=== PATIENT | male | born 1955 | race Caucasian/White ===

== ENCOUNTER 2021-10-18 10:55 | Inpatient (IN) | payer BC ==
[2021-10-18 11:05] VITALS: BMI 31.6
[2021-10-18] MEDS ORDERED: DEXAMETHASONE SOD PHOSPHATE 10 MG/1 ML VIAL IVPUSH ONE (13:32)
[2021-10-18] MEDS ORDERED: ONDANSETRON 4 MG/2 ML VIAL IVPUSH ONE (13:40)
[2021-10-18] MEDS ORDERED: ONDANSETRON 4 MG/2 ML VIAL ONE (13:45)
[2021-10-18] MEDS ORDERED: DEXAMETHASONE SOD PHOSPHATE 10 MG/1 ML VIAL ONE (13:45)
[2021-10-18 14:01] LABS: BASO % 0.5 % (0-2.0); EOS % 0.2 % (0-4.5); HEMATOCRIT 46.9 % (35.4-49); LYMPH % 12.7 % (8-40); MCH 32.4 pg (25.7-33.7); MCHC 34.2 g/dl (32.0-35.9); MEAN CELL VOLUME 94.8 fl (80-96); MEAN PLT VOLUME 9.3 fl (7.5-11.1); MONO % 10.6 % (3.8-10.2); PLATELET COUNT 212 10^3/uL (134-434); RBC 4.94 M/mm3 (4.00-5.60); RDW 13.4 % (11.9-15.9); WHITE BLOOD COUNT 7.8 K/mm3 (4.0-10.0)
[2021-10-18 14:09] LABS: INR 1.68 (0.83-1.09); PROTHROMBIN TIME (PATIENT) 19.7 SEC (9.7-13.0)
[2021-10-18 14:11] LABS: ACTIVATED PTT 34.4 SECONDS (25.2-36.5)
[2021-10-18 14:21] LABS: ALBUMIN 3.1 g/dl (3.4-5.0); BLOOD UREA NITROGEN 18.1 mg/dL (7-18); CALCIUM 8.6 mg/dL (8.5-10.1)
[2021-10-18 14:26] LABS: BILIRUBIN,TOTAL 0.5 mg/dL (0.2-1); TOT PROT 6.9 g/dl (6.4-8.2)
[2021-10-18 14:28] LABS: LACTIC ACID 2.1 mmol/L (0.4-2.0)
[2021-10-18] MEDS ORDERED: LACTATED RINGERS SOLUTION 1000 ML INFUS.BAG IV ONE (15:36)
[2021-10-18] MEDS ORDERED: POTASSIUM CHLORIDE TABS 20 MEQ TABLET.ER (FP) PO ONE ×2 (15:36→17:30)
[2021-10-18 16:04] LABS: PH,URINE 6.5 (5.0-8.0); URINE APPEARANCE CLEAR; URINE BILIRUBIN NEGATIVE (NEGATIVE); URINE COLOR DK YELLOW; URINE GLUCOSE (UA) NEGATIVE (NEGATIVE); URINE KETONE NEGATIVE (NEGATIVE); URINE LEUK ESTERASE NEGATIVE (NEGATIVE); URINE NITRITE NEGATIVE (NEGATIVE); URINE PROTEIN NEGATIVE (NEGATIVE)
[2021-10-18] MEDS ORDERED: ALBUTEROL SO4 HFA INHALER IH PRN (16:13)
[2021-10-18 16:18] LABS: MAGNESIUM 2.1 mg/dL (1.8-2.4)
[2021-10-18] MEDS ORDERED: REMDESIVIR 200 MG in SODIUM CHLORIDE 250 ML IVPB ONE (17:00)
[2021-10-18 21:29] LABS: LACTIC ACID 3.5 mmol/L (0.4-2.0)
[2021-10-18] MEDS ORDERED: ATORVASTATIN CA 80 MG TABLET (FP) ONE (22:24)
[2021-10-18] MEDS ORDERED: APIXABAN 5 MG TABLET ONE (22:24)
[2021-10-18] MEDS ORDERED: ASCORBIC ACID 500 MG TABLET (FP) ONE (22:24)
[2021-10-18] MEDS: APIXABAN 5 MG TABLET PO SCH (22:33)
[2021-10-18] MEDS: ATORVASTATIN CA 80 MG TABLET (FP) PO SCH (22:33)
[2021-10-18] MEDS: ASCORBIC ACID 500 MG TABLET (FP) PO SCH (22:33)
[2021-10-18] MEDS ORDERED: LACTATED RINGERS SOLUTION 1,000 ML IV SCH (23:59)
[2021-10-19] MEDS ORDERED: LACTATED RINGERS SOLUTION 1000 ML INFUS.BAG IV ONE (02:05)
[2021-10-19 07:31] LABS: HEMATOCRIT 42.5 % (35.4-49); HEMOGLOBIN 14.6 GM/dL (11.7-16.9); MCH 32.4 pg (25.7-33.7); MCHC 34.3 g/dl (32.0-35.9); MEAN CELL VOLUME 94.3 fl (80-96); MEAN PLT VOLUME 9.9 fl (7.5-11.1); PLATELET COUNT 208 10^3/uL (134-434); RDW 13.4 % (11.9-15.9); WHITE BLOOD COUNT 9.8 K/mm3 (4.0-10.0)
[2021-10-19] MEDS ORDERED: DEXAMETHASONE SOD PHOSPHATE 10 MG/1 ML VIAL ONE (07:56)
[2021-10-19] MEDS ORDERED: ASCORBIC ACID 500 MG TABLET (FP) ONE (07:56)
[2021-10-19] MEDS ORDERED: APIXABAN 5 MG TABLET ONE (07:56)
[2021-10-19] MEDS ORDERED: ASPIRIN COATED 81 MG TABLET.EC ONE (07:56)
[2021-10-19] MEDS ORDERED: HYDROCHLOROTHIAZIDE 25 MG TABLET (FP) ONE (07:57)
[2021-10-19] MEDS ORDERED: CHOLECALCIFEROL (VIT D3) 1,000 UNIT (25 MCG) TABLET ONE (07:57)
[2021-10-19] MEDS ORDERED: VALSARTAN 80 MG TABLET ONE (07:57)
[2021-10-19 07:59] LABS: CALCIUM 8.6 mg/dL (8.5-10.1); MAGNESIUM 1.9 mg/dL (1.8-2.4)
[2021-10-19 08:00] LABS: ALBUMIN 2.6 g/dl (3.4-5.0)
[2021-10-19 08:03] LABS: PHOSPHOROUS 2.4 mg/dL (2.5-4.9)
[2021-10-19 08:04] LABS: BILIRUBIN,TOTAL 0.3 mg/dL (0.2-1); TOT PROT 5.9 g/dl (6.4-8.2)
[2021-10-19] MEDS: CHOLECALCIFEROL (VIT D3) 1,000 UNIT (25 MCG) TABLET PO SCH (09:17)
[2021-10-19] MEDS: ASPIRIN COATED 81 MG TABLET.EC PO SCH (09:17)
[2021-10-19] MEDS: VALSARTAN 160 MG TABLET PO SCH (09:17)
[2021-10-19] MEDS: ASCORBIC ACID 500 MG TABLET (FP) PO SCH ×2 (09:17→21:25)
[2021-10-19] MEDS: HYDROCHLOROTHIAZIDE 25 MG TABLET (FP) PO SCH (09:17)
[2021-10-19] MEDS: APIXABAN 5 MG TABLET PO SCH ×2 (09:17→21:25)
[2021-10-19] MEDS: DEXAMETHASONE SOD PHOSPHATE 10 MG/1 ML VIAL IVPUSH SCH (09:17)
[2021-10-19] MEDS: REMDESIVIR 100 MG in SODIUM CHLORIDE 250 ML IVPB SCH (17:18)
[2021-10-19] MEDS: ATORVASTATIN CA 80 MG TABLET (FP) PO SCH (21:25)
[2021-10-20] MEDS: APIXABAN 5 MG TABLET PO SCH ×2 (10:40→21:29)
[2021-10-20] MEDS: VALSARTAN 160 MG TABLET PO SCH (10:40)
[2021-10-20] MEDS: CHOLECALCIFEROL (VIT D3) 1,000 UNIT (25 MCG) TABLET PO SCH (10:41)
[2021-10-20] MEDS: ASPIRIN COATED 81 MG TABLET.EC PO SCH (10:41)
[2021-10-20] MEDS: HYDROCHLOROTHIAZIDE 25 MG TABLET (FP) PO SCH (10:41)
[2021-10-20] MEDS: ASCORBIC ACID 500 MG TABLET (FP) PO SCH ×2 (10:41→21:29)
[2021-10-20 11:02] LABS: BASO % 0.1 % (0-2.0); HEMATOCRIT 40.8 % (35.4-49); HEMOGLOBIN 13.9 GM/dL (11.7-16.9); LYMPH % 10.4 % (8-40); MCH 32.1 pg (25.7-33.7); MEAN CELL VOLUME 94.3 fl (80-96); MEAN PLT VOLUME 10.1 fl (7.5-11.1); MONO % 4.3 % (3.8-10.2); NEUT % 85.2 % (42.8-82.8); PLATELET COUNT 248 10^3/uL (134-434); RBC 4.33 M/mm3 (4.00-5.60); RDW 13.4 % (11.9-15.9)
[2021-10-20] MEDS ORDERED: DEXAMETHASONE SOD PHOSPHATE 4 MG/1 ML VIAL IVPUSH SCH (11:02)
[2021-10-20 11:15] LABS: CALCIUM 8.5 mg/dL (8.5-10.1)
[2021-10-20 11:16] LABS: ALBUMIN 2.7 g/dl (3.4-5.0); BLOOD UREA NITROGEN 19.8 mg/dL (7-18); MAGNESIUM 1.9 mg/dL (1.8-2.4)
[2021-10-20 11:19] LABS: CREATININE 0.9 mg/dL (0.55-1.3)
[2021-10-20 11:21] LABS: BILIRUBIN,TOTAL 0.4 mg/dL (0.2-1)
[2021-10-20 11:38] LABS: ERYTHROCYTE SEDIMENTATION RATE 29 mm/hr (0-20)
[2021-10-20] MEDS: DEXAMETHASONE SOD PHOSPHATE 10 MG/1 ML VIAL IVPUSH SCH (11:38)
[2021-10-20] MEDS: DEXAMETHASONE SOD PHOSPHATE 4 MG/1 ML VIAL IVPUSH SCH (11:38)
[2021-10-20] MEDS: guaiFENesin/CODEINE 10 ML UNIT-DOSE CUPS PO SCH ×2 (12:24→18:48)
[2021-10-20] MEDS: REMDESIVIR 100 MG in SODIUM CHLORIDE 250 ML IVPB SCH (17:30)
[2021-10-20] MEDS: ATORVASTATIN CA 80 MG TABLET (FP) PO SCH (21:29)
[2021-10-21] MEDS: guaiFENesin/CODEINE 10 ML UNIT-DOSE CUPS PO SCH ×3 (03:01→22:41)
[2021-10-21] MEDS: DEXAMETHASONE SOD PHOSPHATE 4 MG/1 ML VIAL IVPUSH SCH (11:10)
[2021-10-21] MEDS: ASPIRIN COATED 81 MG TABLET.EC PO SCH (11:11)
[2021-10-21] MEDS: VALSARTAN 160 MG TABLET PO SCH (11:11)
[2021-10-21] MEDS: ASCORBIC ACID 500 MG TABLET (FP) PO SCH ×2 (11:11→22:41)
[2021-10-21] MEDS: APIXABAN 5 MG TABLET PO SCH ×2 (11:11→22:41)
[2021-10-21] MEDS: CHOLECALCIFEROL (VIT D3) 1,000 UNIT (25 MCG) TABLET PO SCH (11:11)
[2021-10-21] MEDS: HYDROCHLOROTHIAZIDE 25 MG TABLET (FP) PO SCH (11:11)
[2021-10-21] MEDS: ACETAMINOPHEN 325 MG TABLET (FP) PO PRN (11:26)
[2021-10-21 11:41] LABS: HEMATOCRIT 41.7 % (35.4-49); HEMOGLOBIN 14.1 GM/dL (11.7-16.9); LYMPH % 10.5 % (8-40); MCHC 33.8 g/dl (32.0-35.9); MEAN CELL VOLUME 94.7 fl (80-96); MONO % 7.2 % (3.8-10.2); NEUT % 82.3 % (42.8-82.8); PLATELET COUNT 256 10^3/uL (134-434); RDW 13.5 % (11.9-15.9); WHITE BLOOD COUNT 16.1 K/mm3 (4.0-10.0)
[2021-10-21 11:49] LABS: CALCIUM 8.7 mg/dL (8.5-10.1)
[2021-10-21 11:50] LABS: ALBUMIN 2.8 g/dl (3.4-5.0); BLOOD UREA NITROGEN 20.2 mg/dL (7-18); MAGNESIUM 2.1 mg/dL (1.8-2.4)
[2021-10-21 11:53] LABS: CREATININE 0.9 mg/dL (0.55-1.3)
[2021-10-21 11:55] LABS: BILIRUBIN,TOTAL 0.5 mg/dL (0.2-1)
[2021-10-21] MEDS: REMDESIVIR 100 MG in SODIUM CHLORIDE 250 ML IVPB SCH (17:05)
[2021-10-21] MEDS: BUDESONIDE/FORMETEROL FUMARATE 160/4.5 mcg INHALER IH SCH (22:41)
[2021-10-21] MEDS: ATORVASTATIN CA 80 MG TABLET (FP) PO SCH (22:41)
[2021-10-22] MEDS: guaiFENesin/CODEINE 10 ML UNIT-DOSE CUPS PO SCH (04:25)
[2021-10-22] MEDS: ACETAMINOPHEN 325 MG TABLET (FP) PO PRN (09:02)
[2021-10-22] MEDS: ASCORBIC ACID 500 MG TABLET (FP) PO SCH ×2 (09:02→21:26)
[2021-10-22] MEDS: HYDROCHLOROTHIAZIDE 25 MG TABLET (FP) PO SCH (09:02)
[2021-10-22] MEDS: ASPIRIN COATED 81 MG TABLET.EC PO SCH (09:02)
[2021-10-22] MEDS: DEXAMETHASONE SOD PHOSPHATE 4 MG/1 ML VIAL IVPUSH SCH (09:02)
[2021-10-22] MEDS: CHOLECALCIFEROL (VIT D3) 1,000 UNIT (25 MCG) TABLET PO SCH (09:02)
[2021-10-22] MEDS: APIXABAN 5 MG TABLET PO SCH ×2 (09:02→21:26)
[2021-10-22] MEDS: VALSARTAN 160 MG TABLET PO SCH (09:02)
[2021-10-22] MEDS: BUDESONIDE/FORMETEROL FUMARATE 160/4.5 mcg INHALER IH SCH ×2 (09:03→21:26)
[2021-10-22 11:28] LABS: HEMATOCRIT 40.9 % (35.4-49); MCH 32.3 pg (25.7-33.7); MCHC 34.1 g/dl (32.0-35.9); MEAN CELL VOLUME 94.6 fl (80-96); MEAN PLT VOLUME 9.7 fl (7.5-11.1); MONO % 7.6 % (3.8-10.2); NEUT % 84.4 % (42.8-82.8); PLATELET COUNT 263 10^3/uL (134-434); RBC 4.32 M/mm3 (4.00-5.60); RDW 13.6 % (11.9-15.9); WHITE BLOOD COUNT 17.2 K/mm3 (4.0-10.0)
[2021-10-22 11:41] LABS: CALCIUM 8.9 mg/dL (8.5-10.1)
[2021-10-22 11:43] LABS: ALBUMIN 2.9 g/dl (3.4-5.0); BLOOD UREA NITROGEN 25.2 mg/dL (7-18); MAGNESIUM 2.4 mg/dL (1.8-2.4)
[2021-10-22 11:45] LABS: CREATININE 0.9 mg/dL (0.55-1.3)
[2021-10-22 11:47] LABS: BILIRUBIN,TOTAL 0.6 mg/dL (0.2-1); TOT PROT 5.8 g/dl (6.4-8.2)
[2021-10-22] MEDS ORDERED: guaiFENesin/D-METHORPHAN HB 10 ML UNIT-DOSE CUPS PO PRN (13:20)
[2021-10-22] MEDS: REMDESIVIR 100 MG in SODIUM CHLORIDE 250 ML IVPB SCH (16:15)
[2021-10-22] MEDS: ATORVASTATIN CA 80 MG TABLET (FP) PO SCH (21:26)
[2021-10-23] MEDS: ASCORBIC ACID 500 MG TABLET (FP) PO SCH (09:35)
[2021-10-23] MEDS: VALSARTAN 160 MG TABLET PO SCH (09:35)
[2021-10-23] MEDS: ASPIRIN COATED 81 MG TABLET.EC PO SCH (09:35)
[2021-10-23] MEDS: APIXABAN 5 MG TABLET PO SCH (09:35)
[2021-10-23] MEDS: DEXAMETHASONE SOD PHOSPHATE 4 MG/1 ML VIAL IVPUSH SCH (09:36)
[2021-10-23] MEDS: CHOLECALCIFEROL (VIT D3) 1,000 UNIT (25 MCG) TABLET PO SCH (09:38)
[2021-10-23] MEDS: BUDESONIDE/FORMETEROL FUMARATE 160/4.5 mcg INHALER IH SCH (09:38)
[2021-10-23] MEDS: HYDROCHLOROTHIAZIDE 25 MG TABLET (FP) PO SCH (09:38)
[2021-10-23 09:56] VITALS: BP 121/56; PULSE 70; TEMP 98.3
== END 2021-10-23 13:08 | disposition home or self-care (01) | DRG 177 ==
LOC: JER 10:55 → JERBED 14:47 → J5S 10-19 09:21
PROVIDERS: ADMIT Internal Medicine; ATTEND Nurse Practitioner Acute Care
PROC: XW033E5 Introduction of Remdesivir Anti-infective into Peripheral Vein, Percutaneous Approach, New Technology Group 5 (ICD-10-PCS; principal; 2021-10-18)
PROC: 3E0333Z Introduction of Anti-inflammatory into Peripheral Vein, Percutaneous Approach (ICD-10-PCS; 2021-10-18)
DX: U07.1 COVID-19 (principal); J12.82 Pneumonia due to coronavirus disease 2019; J96.01 Acute respiratory failure with hypoxia; I51.81 Takotsubo syndrome; E87.2 Acidosis; I10 Essential (primary) hypertension; E78.5 Hyperlipidemia, unspecified; I48.91 Unspecified atrial fibrillation; E86.0 Dehydration; E87.6 Hypokalemia; M79.10 Myalgia, unspecified site
CPT/HCPCS: 36415; 71046-TC-FY; 80053; 81003; 82550; 82728; 83605; 83615; 83735; 84100; 84484; 85025; 85027; 85379; 85610; 85651; 85730; 86140; 87040; 87086; 93005; 93010; 94010; 94761; 99285-25; C9399; C9803; J1100; U0003; U0005

== ENCOUNTER 2022-01-27 20:22 | Emergency (ER) | payer BC ==
[2022-01-27 20:50] VITALS: BP 109/70; PULSE 69; TEMP 100.2; BMI 30.4
[2022-01-27] MEDS ORDERED: IPRATROPIUM BR 0.02% 0.5 MG/2.5 ML VIAL.NEB. NEB ONE ×2 (20:50→21:43)
[2022-01-27] MEDS ORDERED: ACETAMINOPHEN 325 MG TABLET (FP) PO ONE (20:50)
[2022-01-27] MEDS ORDERED: ACETAMINOPHEN 325 MG TABLET (FP) ONE (21:43)
[2022-01-29 18:08] LABS: SARS-CoV-2 NAA Not Detected (Not Detected)
== END 2022-01-27 23:17 | disposition home or self-care (01) ==
LOC: JER 20:22
PROC: 3E0F7GC Introduction of Other Therapeutic Substance into Respiratory Tract, Via Natural or Artificial Opening (ICD-10-PCS; principal; 2022-01-27)
DX: B34.9 Viral infection, unspecified (principal)
CPT/HCPCS: 71046-TC-FY; 87804; 87807; 99284-25; C9803-CS; U0003; U0005